=== PATIENT | male | born 1945 | race Caucasian/White ===

== ENCOUNTER → 2018-01-22 | Outpatient (CLI) | payer SELFPAY ==
[2018-01-22 21:33] LABS: Appearance, Urine Clear (Clear); Bilirubin, Urine Neg (Neg); Blood, Urine Neg (Neg); Color, Urine Yellow (P-Yellow); Glucose Qualitative, Urine Neg (Neg); Ketones, Urine Neg (Neg); Leukocyte Esterase, Urine 1+ (Neg); Nitrite, Urine Neg (Neg); Protein, Urine Neg (Neg); Urobilinogen, Urine 2+ (Normal)
[2018-01-22 21:34] LABS: Bacteria Mod /hpf; Red Blood Cells, Urine 0-2 /hpf (0-2); Squamous Epithelial Cells Few /hpf (Few)
== END | disposition home or self-care (01) ==
LOC: EDSTATUS 14:45 → LAB RH 21:19
DX: N39.0 Urinary tract infection, site not specified (principal)
CPT/HCPCS: 81001; 87086

== ENCOUNTER 2018-06-24 17:51 | Inpatient (IN) | payer OTHER, MEDICARE ==
[~2018-06-24] VITALS: Ht 195.6 cm; Wt 83.1 kg
[2018-06-24 19:04] LABS: BASOPHILS ABSOLUTE AUTO 0.07 K/mm3 (0.00-0.23); BASOPHILS PERCENT AUTO 1 % (0-2); EOSINOPHILS ABSOLUTE AUTO 0.25 K/mm3 (0.00-0.68); EOSINOPHILS PERCENT AUTO 2 % (0-6); Hematocrit 34.4 % (37.0-53.0); Hemoglobin 10.2 g/dL (13.5-17.5); IMMATURE GRAN ABSOLUTE AUTO 0.03 K/mm3 (0.00-0.10); IMMATURE GRAN PERCENT AUTO 0 % (0-1); LYMPHOCYTES ABSOLUTE AUTO 2.69 K/mm3 (0.84-5.20); LYMPHOCYTES PERCENT AUTO 26 % (21-46); MONOCYTES ABSOLUTE AUTO 0.62 K/mm3 (0.16-1.47); MONOCYTES PERCENT AUTO 6 % (4-13); Mean Corpuscular HGB 23.2 pg (26.0-34.0); Mean Corpuscular HGB Conc 29.7 g/dL (31.5-36.5); Mean Corpuscular Volume 78 fL (80-100); Mean Platelet Volume 9.6 fL (9.1-12.4); NEUTROPHILS PERCENT AUTO 65 % (41-73); Platelet Count 464 K/mm3 (150-400); RDW Coefficient Variation 18.2 % (11.7-14.2); RDW Standard Deviation 52.2 fL (35.1-46.3); White Blood Cell Count 10.36 K/mm3 (4.00-11.30)
[2018-06-24] MEDS ORDERED: ELIQUIS5 MG PO (19:22)
[2018-06-24] MEDS ORDERED: DIGOX125 MCG PO (19:22)
[2018-06-24] MEDS ORDERED: DULO30 PO (19:23)
[2018-06-24] MEDS ORDERED: Ferrous Sulfat325 M2 PO (19:23)
[2018-06-24] MEDS ORDERED: Fentanyl1 EACH TD (19:23)
[2018-06-24] MEDS ORDERED: MELATONIN 5 MG1 EACH PO (19:24)
[2018-06-24] MEDS ORDERED: Omeprazole20 M1 PO (19:25)
[2018-06-24] MEDS ORDERED: METO25 PO (19:25)
[2018-06-24 19:27] LABS: Troponin I <0.015 ng/mL (0.000-0.040)
[2018-06-24 19:30] LABS: Alanine Aminotransfer (ALT/SGP 18 U/L (12-78); Albumin, Blood 2.5 g/dL (3.4-5.0); Albumin/Globulin Ratio 0.4 (0.8-1.8); Alk Phos 135 U/L (50-136); Anion Gap 8 mmol/L (6-16); Aspartate Aminotrans (AST/SGOT 20 U/L (12-37); Bilirubin, Total 0.7 mg/dL (0.1-1.0); Blood Urea Nitrogen 10 mg/dL (8-24); Bun/Creatinine Ratio 18.4 (12.0-20.0); CO2, Blood 30 mmol/L (21-32); Chloride, Blood 95 mmol/L (98-108); Creatinine, Blood 0.54 mg/dL (0.60-1.20); Globulin, Blood 6.6 g/dL (2.2-4.0); Glomerular Filtration Rate >60 (60-); Glucose, Blood 112 mg/dL (70-99); Potassium, Blood 4.2 mmol/L (3.5-5.5); Sodium, Blood 133 mmol/L (136-145); Total Protein, Blood 9.1 g/dL (6.4-8.2)
[2018-06-24] MEDS ORDERED: TRAZ50 PO (21:54)
[2018-06-24 22:02] LABS: Digoxin (Lanoxin) 0.79 ug/mL (0.80-2.00)
[2018-06-24] MEDS ORDERED: TIZANIDINE HCL2 MG PO (22:07)
[2018-06-24] MEDS ORDERED: GAVILAX17 GM PO (22:08)
[2018-06-24] MEDS ORDERED: BISA10S PR (22:09)
[2018-06-24] MEDS ORDERED: Enema133 M1 PR (22:10)
[2018-06-24] MEDS ORDERED: HYDMOR2 PO (22:11)
[2018-06-24] MEDS ORDERED: Milk Of Ma400 MG/5 M PO (22:13)
[2018-06-24] MEDS ORDERED: OXYC5 PO (22:13)
[2018-06-24] MEDS ORDERED: PREVNAR 13 SYR0.5 ML IM (22:17)
[2018-06-24] MEDS ORDERED: LIDO700A20 TOP (22:19)
--- NOTE | 2018-06-25 05:23 | NUR ---
SHIFT SUMMARY PT ARRIVED TO FLOOR IN DISCOMFORT. PT MEDICATED PER EMAR. PT DISCOMFORT WAS MANAGED WELL. PT IS FORGETFUL AT TIMES. PT IS CURRENTLY SLEEPING AND BREATHING EASY. BED ALARM ON AND CALL LIGHT IN REACH.
[2018-06-25 05:29] LABS: International Normalized Ratio 1.11; Prothrombin Time Results 11.7 Sec (9.7-11.5)
[2018-06-25 05:32] LABS: BASOPHILS ABSOLUTE AUTO 0.06 K/mm3 (0.00-0.23); BASOPHILS PERCENT AUTO 1 % (0-2); EOSINOPHILS ABSOLUTE AUTO 0.24 K/mm3 (0.00-0.68); EOSINOPHILS PERCENT AUTO 3 % (0-6); Hematocrit 32.7 % (37.0-53.0); Hemoglobin 9.7 g/dL (13.5-17.5); IMMATURE GRAN ABSOLUTE AUTO 0.03 K/mm3 (0.00-0.10); IMMATURE GRAN PERCENT AUTO 0 % (0-1); LYMPHOCYTES ABSOLUTE AUTO 2.54 K/mm3 (0.84-5.20); LYMPHOCYTES PERCENT AUTO 28 % (21-46); MONOCYTES ABSOLUTE AUTO 0.56 K/mm3 (0.16-1.47); MONOCYTES PERCENT AUTO 6 % (4-13); Mean Corpuscular HGB 22.9 pg (26.0-34.0); Mean Corpuscular HGB Conc 29.7 g/dL (31.5-36.5); Mean Corpuscular Volume 77 fL (80-100); Mean Platelet Volume 9.7 fL (9.1-12.4); NEUTROPHILS ABSOLUTE AUTO 5.64 K/mm3 (1.96-9.15); NEUTROPHILS PERCENT AUTO 62 % (41-73); Platelet Count 407 K/mm3 (150-400); RDW Coefficient Variation 18.1 % (11.7-14.2); RDW Standard Deviation 50.2 fL (35.1-46.3); Red Blood Cell Count 4.24 M/mm3 (4.30-5.90); White Blood Cell Count 9.07 K/mm3 (4.00-11.30)
[2018-06-25 06:19] LABS: Anion Gap 7 mmol/L (6-16); Blood Urea Nitrogen 11 mg/dL (8-24); Bun/Creatinine Ratio 22.1 (12.0-20.0); CO2, Blood 29 mmol/L (21-32); Calcium, Blood 9.5 mg/dL (8.5-10.1); Chloride, Blood 95 mmol/L (98-108); Glomerular Filtration Rate >60 (60-); Glucose, Blood 102 mg/dL (70-99); Potassium, Blood 3.9 mmol/L (3.5-5.5); Sodium, Blood 131 mmol/L (136-145)
--- NOTE | 2018-06-25 18:32 | NUR ---
SHIFT SUMMARY NO ACUTE CHANGES. PATIENT COMBATIVE WHEN IN PAIN/PERSON CARE AND REPOSITIONING IS PERFORMED. ASPIRATION OF R HIP ATTEMPTED BUT WHEN PATIENT ARRIVED TO PROCEDURE ROOM HE REFUSED TO SIGN CONSENT FORM. DR. HERNANDES CONSULTED, PER DR. HERNANDES PATIENT NEEDS TO GO TO [facility] TO HAVE HIP SURGERY IT IS OUTSIDE THE SCOPE OF THIS FACILTY. PATIENT'S ISAIAH NOTIFED. ISAIAH IS PATIENT'S POA. CARE MANAGEMENT ALSO FOLLOWING CASE. PATIENT MEDICATED SEVERAL TIMES DURING SHIFT FOR PAIN. CALL LIGHT IN REACH, WILL CONTINUE TO MONITOR.
--- NOTE | 2018-06-26 03:36 | NUR ---
SHIFT SUMMARY PATIENT HAD NO ACUTE CHANGES OBSERVED THIS SHIFT. AXOX 2 W/CONFUSION. PAIN ON MOVEMENT WHEN REPOSITIONED. PIV REMAINS INTACT. NS INFUSING AT 100mL/HR. BAG TWO OF TWO. DILAUDID 1 MG GIVEN FOR RIGHT HIP PAIN PER EMAR. IV ABX INFUSED. ON 3L O2 NC. LIDO PATCHES REMOVED FROM R HIP X TWO. PATIENT COMBATIVE WITH SOME INTERVENTIONS AND QUICKLY CALMS DOWN. CALL LIGHT IN REACH. BED IN LOWEST POSITION. WILL CONTINUE TO MONITOR UNTIL DAY SHIFT NURSE ASSUMES CARE.
[2018-06-26 04:55] LABS: Hematocrit 34.2 % (37.0-53.0); Hemoglobin 9.9 g/dL (13.5-17.5); Mean Corpuscular HGB 23.1 pg (26.0-34.0); Mean Corpuscular HGB Conc 28.9 g/dL (31.5-36.5); Mean Platelet Volume 9.3 fL (9.1-12.4); Platelet Count 358 K/mm3 (150-400); RDW Coefficient Variation 18.1 % (11.7-14.2); RDW Standard Deviation 52.1 fL (35.1-46.3); Red Blood Cell Count 4.29 M/mm3 (4.30-5.90); White Blood Cell Count 7.65 K/mm3 (4.00-11.30)
[2018-06-26 04:58] LABS: Mean Corpuscular Volume 80 fL (80-100)
--- NOTE | 2018-06-26 17:01 | NUR ---
SHIFT SUMMARY PT HAS HAD NO ACUTE CHANGES THIS SHIFT, MEDICATED PER MAR FOR PAIN, NO OTHER COMPLAINTS. REPOSITIONED PT Q2, OFFERED URINAL ASSISTANCE WHEN IN ROOM-PT CONINTENT T/O MOST OF SHIFT, PT APPEARS TO BE SLEEPING AT THIS TIME, WILL CONT TO MONITOR UNTIL REPORT GIVEN TO NOC RN.
--- NOTE | 2018-06-27 04:12 | NUR ---
SHIFT SUMMARY PT MOSTLY A/O, KNEW IT WAS JUNE 2018 BUT THOUGHT IT WAS THE . WAS ABLE TO TELL ME HE WAS AT [facility]. CONFUSION AT TIMES. PAINFUL IN R HIP. PT IRRITABLE, ESPECIALLY ABOUT HAVING TO BE TURNED OR CHANGED. OFFERED URINAL FREQUENTLY, WITH THIS PT WAS MOSTLY CONTINENT THROUGHOUT THE NIGHT. PT DIFFICULT TO TURN, PT IS STIFF AND PAINFUL. REDNESS TO R HIP. MEDICATED PER EMAR. SLEEPS WELL ONCE MEDICATED AND NOT MOVING. VSS. WILL CONTINUE TO MONITOR.
[2018-06-27 05:23] LABS: BASOPHILS ABSOLUTE AUTO 0.05 K/mm3 (0.00-0.23); BASOPHILS PERCENT AUTO 1 % (0-2); EOSINOPHILS ABSOLUTE AUTO 0.31 K/mm3 (0.00-0.68); EOSINOPHILS PERCENT AUTO 4 % (0-6); Hematocrit 25.7 % (37.0-53.0); Hemoglobin 7.7 g/dL (13.5-17.5); IMMATURE GRAN ABSOLUTE AUTO 0.02 K/mm3 (0.00-0.10); IMMATURE GRAN PERCENT AUTO 0 % (0-1); LYMPHOCYTES ABSOLUTE AUTO 2.13 K/mm3 (0.84-5.20); LYMPHOCYTES PERCENT AUTO 30 % (21-46); MONOCYTES ABSOLUTE AUTO 0.41 K/mm3 (0.16-1.47); MONOCYTES PERCENT AUTO 6 % (4-13); Mean Corpuscular HGB 23.2 pg (26.0-34.0); Mean Corpuscular Volume 77 fL (80-100); Mean Platelet Volume 9.2 fL (9.1-12.4); NEUTROPHILS ABSOLUTE AUTO 4.17 K/mm3 (1.96-9.15); NEUTROPHILS PERCENT AUTO 59 % (41-73); Platelet Count 386 K/mm3 (150-400); RDW Coefficient Variation 17.8 % (11.7-14.2); RDW Standard Deviation 50.2 fL (35.1-46.3); Red Blood Cell Count 3.32 M/mm3 (4.30-5.90); White Blood Cell Count 7.09 K/mm3 (4.00-11.30)
[2018-06-27 05:54] LABS: Albumin, Blood 2.1 g/dL (3.4-5.0); Anion Gap 6 mmol/L (6-16); Blood Urea Nitrogen 19 mg/dL (8-24); Bun/Creatinine Ratio 30.9 (12.0-20.0); CO2, Blood 30 mmol/L (21-32); Calcium, Blood 9.4 mg/dL (8.5-10.1); Chloride, Blood 100 mmol/L (98-108); Creatinine, Blood 0.61 mg/dL (0.60-1.20); Glomerular Filtration Rate >60 (60-); Glucose, Blood 98 mg/dL (70-99); Phosphorus, Blood 2.1 mg/dL (2.5-4.9); Potassium, Blood 3.9 mmol/L (3.5-5.5); Sodium, Blood 136 mmol/L (136-145)
[2018-06-27 06:07] LABS: Vancomycin, Trough 20.7 ug/mL (5.0-10.0)
--- NOTE | 2018-06-27 09:47 | NUR ---
PT REFUSED TO SIT UP PT REFUSED TO SIT UP IN BED FOR BREAKFAST. PT STATED IT WAS TOO PAINFUL AND HE DEMANDED TO BE LAYED BACK DOWN IN BED. PT EDUCATED ON THE DANGERS OF EATING LYING DOWN. PT THEN ASKED RN AND PRESS TENDER SMOKE SIGNAL TO LEAVE THE ROOM AND STATED "LEAVE ME ALONE"
--- NOTE | 2018-06-27 12:22 | NUR ---
PT REFUSAL PT REFUSED REPOSITIONING. REPOSITIONING OFFERED TWICE THIS SHIFT SO FAR & PT REFUSED BOTH TIMES. WILL CONTINUE TO OFFER AND MONITOR PT
--- NOTE | 2018-06-27 14:33 | NUR ---
PT REFUSED REPOSITIONING PT REFUSED REPOSITIONING AGAIN THIS SHIFT
--- NOTE | 2018-06-27 17:38 | NUR ---
SHIFT ASSESSMENT PT R HIP RED & SWOLLEN. DR. FISHER AWARE. PT REFUSED MOST THE SHIFT FOR REPOSITIONS, BUT ALLOWED ONE BRIEF CHANGE THIS SHIFT. PT PREMEDICATED FOR CHANGE. DURING CHANGE, REDNESS WAS FOUND ON PT BOTTOM. PT EDUCATED ON THE NEED FOR REPOSITIONS TO PREVENT SKIN BREAKDOWN. PT ALLOWED FOR A PILLOW TO BE PLACED UNDER L HIP TO RELIEVE PRESSURE. NO OTHER CHANGES IN ASSESSMENT AT THIS TIME. PT HAS SLIGHT TEMP OF 99.7. ALL OTHER VITALS STABLE. WILL CONTINUE TO MONITOR UNTIL TUNROVER IS COMPLETE.
--- NOTE | 2018-06-27 19:48 | NUR ---
CT SCAN PT PREMEDICATED W/ 50 MCG FENTANYL IV. COMPLAINING OF 9/10 PAIN IN HIS R HIP. SLID OVER TO [facility] W/ 3 PEOPLE AND TAKEN DOWN TO HAVE CT OF PELVIS.
--- NOTE | 2018-06-28 03:37 | NUR ---
SHIFT SUMMARY PT IRRITABLE REGARDING ANY CARE, ESPECIALLY WHEN IT INVOLVES PT HAVING TO BE TURNED OR MOVED IN THE BED. PT PAINFUL W/ MOVEMENT. PREMEDICATING DOES NOT APPEAR TO HELP. PT APPEARS COMFORTABLE MOST OF THE TIME WHEN LYING STILL. MEDICATED WHEN PT REPORTED HE WAS PAINFUL EVEN AT REST. SPOKE W/ PT SEVERAL TIMES ABOUT SPEAKING TO STAFF RESPECTFULLY AND WITHOUT FOUL LANGUAGE. PT APOLOGETIC FOLLOWING. CONTINENT MOST OF THE TIME THIS EVENING, FREQUENT ROUNDING OFFERING URINAL EACH TIME. LOW GRADE FEVER AT START OF SHIFT. AFTER MEDICATING PT FOR PAIN W/ NORCO 2 TABS 5/325 PT'S TEMPERATURE ALSO IMPROVED TO 98.6 DEG F. PT RESTING IN BED, APPEARS COMFORTABLE. WILL CONTINUE TO MONITOR AND REPORT TO DAY RN.
[2018-06-28 05:09] LABS: BASOPHILS ABSOLUTE AUTO 0.07 K/mm3 (0.00-0.23); BASOPHILS PERCENT AUTO 1 % (0-2); EOSINOPHILS ABSOLUTE AUTO 0.22 K/mm3 (0.00-0.68); EOSINOPHILS PERCENT AUTO 3 % (0-6); Hematocrit 30.7 % (37.0-53.0); Hemoglobin 9.5 g/dL (13.5-17.5); IMMATURE GRAN ABSOLUTE AUTO 0.02 K/mm3 (0.00-0.10); IMMATURE GRAN PERCENT AUTO 0 % (0-1); LYMPHOCYTES ABSOLUTE AUTO 2.83 K/mm3 (0.84-5.20); LYMPHOCYTES PERCENT AUTO 33 % (21-46); MONOCYTES ABSOLUTE AUTO 0.51 K/mm3 (0.16-1.47); MONOCYTES PERCENT AUTO 6 % (4-13); Mean Corpuscular HGB 23.7 pg (26.0-34.0); Mean Corpuscular HGB Conc 30.9 g/dL (31.5-36.5); Mean Corpuscular Volume 77 fL (80-100); Mean Platelet Volume 9.4 fL (9.1-12.4); NEUTROPHILS ABSOLUTE AUTO 5.01 K/mm3 (1.96-9.15); NEUTROPHILS PERCENT AUTO 58 % (41-73); Platelet Count 421 K/mm3 (150-400); RDW Coefficient Variation 17.9 % (11.7-14.2); RDW Standard Deviation 49.4 fL (35.1-46.3); Red Blood Cell Count 4.01 M/mm3 (4.30-5.90); White Blood Cell Count 8.66 K/mm3 (4.00-11.30)
[2018-06-28 05:36] LABS: Percent Saturation 32.7 % (20.0-50.0)
[2018-06-28 05:37] LABS: Albumin, Blood 2.3 g/dL (3.4-5.0); Anion Gap 7 mmol/L (6-16); Blood Urea Nitrogen 19 mg/dL (8-24); Bun/Creatinine Ratio 33.4 (12.0-20.0); CO2, Blood 29 mmol/L (21-32); Calcium, Blood 9.9 mg/dL (8.5-10.1); Chloride, Blood 101 mmol/L (98-108); Creatinine, Blood 0.57 mg/dL (0.60-1.20); Glomerular Filtration Rate >60 (60-); Glucose, Blood 95 mg/dL (70-99); Phosphorus, Blood 2.2 mg/dL (2.5-4.9); Potassium, Blood 3.9 mmol/L (3.5-5.5); Sodium, Blood 137 mmol/L (136-145)
--- NOTE | 2018-06-28 17:57 | NUR ---
SHIFT SUMMARY PT HAS HAD NO ACUTE CHANGES THIS SHIFT, MEDICATED PER MAR FOR PAIN, REPOSITIONED OFTEN PT WOULD ALLOW. PT IS EATING DINNER AT THIS TIME, WILL CONT TO MONITOR UNTIL REPORT GIVEN TO DARNELL RN.
--- NOTE | 2018-06-29 04:00 | NUR ---
SHIFT SUMMARY PATIENT HAD NO ACUTE CHANGES OBSERVED THIS SHIFT. PATIENT IRRITABLE WITH MOVEMENT OF TURNS AND ATTENDS CHANGES. REPORTED R HIP PAIN X ONE AND RECEIVED NORCO X 2 TABS PER EMAR. DENIES SOB AND N/V. PIV REMAINS INTACT. LIDOCAINE PATCHES REMOVED FROM R HIP. USES URINAL AT BEDSIDE. VSS/AFEBRILE. CALL LIGHT IN REACH/ BED IN LOWEST POSITION. WILL CONTINUE TO MONITOR UNTIL DAY SHIFT NURSE ASSUMES CARE.
[2018-06-29 05:24] LABS: BASOPHILS ABSOLUTE AUTO 0.06 K/mm3 (0.00-0.23); BASOPHILS PERCENT AUTO 1 % (0-2); EOSINOPHILS ABSOLUTE AUTO 0.31 K/mm3 (0.00-0.68); EOSINOPHILS PERCENT AUTO 4 % (0-6); Hematocrit 29.7 % (37.0-53.0); IMMATURE GRAN ABSOLUTE AUTO 0.03 K/mm3 (0.00-0.10); IMMATURE GRAN PERCENT AUTO 0 % (0-1); LYMPHOCYTES ABSOLUTE AUTO 2.75 K/mm3 (0.84-5.20); LYMPHOCYTES PERCENT AUTO 38 % (21-46); MONOCYTES ABSOLUTE AUTO 0.48 K/mm3 (0.16-1.47); MONOCYTES PERCENT AUTO 7 % (4-13); Mean Corpuscular HGB 23.4 pg (26.0-34.0); Mean Corpuscular HGB Conc 30.3 g/dL (31.5-36.5); Mean Corpuscular Volume 77 fL (80-100); Mean Platelet Volume 9.5 fL (9.1-12.4); NEUTROPHILS ABSOLUTE AUTO 3.68 K/mm3 (1.96-9.15); NEUTROPHILS PERCENT AUTO 50 % (41-73); Platelet Count 403 K/mm3 (150-400); RDW Coefficient Variation 18.2 % (11.7-14.2); RDW Standard Deviation 50.4 fL (35.1-46.3); Red Blood Cell Count 3.85 M/mm3 (4.30-5.90); White Blood Cell Count 7.31 K/mm3 (4.00-11.30)
[2018-06-29 05:58] LABS: Albumin, Blood 2.4 g/dL (3.4-5.0); Anion Gap 8 mmol/L (6-16); Blood Urea Nitrogen 20 mg/dL (8-24); Bun/Creatinine Ratio 38.6 (12.0-20.0); CO2, Blood 28 mmol/L (21-32); Calcium, Blood 9.7 mg/dL (8.5-10.1); Chloride, Blood 101 mmol/L (98-108); Creatinine, Blood 0.52 mg/dL (0.60-1.20); Glomerular Filtration Rate >60 (60-); Glucose, Blood 87 mg/dL (70-99); Phosphorus, Blood 1.9 mg/dL (2.5-4.9); Potassium, Blood 3.6 mmol/L (3.5-5.5); Sodium, Blood 137 mmol/L (136-145)
--- NOTE | 2018-06-29 18:10 | NUR ---
SHIFT SUMMARY. A&OX3, INTERMITTENT CONFUSION. CONTINUES WITH CHRONIC L SIDED WEAKNESS, L ARM IS NEAR FLACCID WITH HAND COTNRACTURE. PT WAS PLEASANT MOST OF THE SHIFT ALTHOUGH BECOMES SOMEWHAT DISGRUNTLED WITH CARE SECONDARY TO PAIN. ATTEMPTED TO PREMEDICATE FOR PAIN PRIOR TO CARE. PT HAD ONE EPISODE OF INCONTINENT STOOL AND URINE. TURN SHEDULED IMPLEMENTED. R HIP/UPPER LEG CONTINUES TO BE PAINFUL, WITH TOUCH AND MOVEMENT. PAIN MANAGED WELL WITH CURRENT ORDERS AND NO ADVERSE EFFECTS. NO N/V, SOB. GOOD MEAL AND FLUID INTAKE. NO NEW CHANGES.
--- NOTE | 2018-06-30 05:09 | NUR ---
SHIFT SUMMARY PATIENT HAD NO ACUTE CHANGES OBSERVED DURING THE SHIFT. COOPERATIVE WITH BASIC CARE. PATIENT IRRITABLE WITH PAIN ON MOVEMENT TO RIGHT LEG/HIP. RESOLVES QUICKLY. TORADOL GIVEN FOR R HIP PAIN X ONE PER EMAR. VSS/AFEBRILE. DENIES SOB AND N/V. USES CALL LIGHT APPROPRIATELY. BED IN LOWEST POSITION. WILL CONTINUE TO MONITOR UNTIL DAY SHIFT NURSE ASSUMES CARE.
--- NOTE | 2018-06-30 17:01 | NUR ---
SHIFT SUMMARY. ALERT, ORIENTATED X3, MOSTLY PLEASANT, ALTHOUGH HAS ANGRY BEHAVIOR WITH CARE SECONDARY TO PAIN. PT REFUSED PHYSICAL THERAPY. CHANGES MADE TO PAIN MEDICATION REGIMEN TO MORE CLOSELY RESEMBLE HOME MED REGIMEN AT [facility], MED RX VARIFIED WITH [facility] NURSE AND [facility] LAURA THAT WAS FAXED TO US TODAY. NO SOB, N/V. GOOD APPETITE AND INTAKE. POTENTIAL D/C BACK TO [facility] TOMORROW PER DR. FISHER.
--- NOTE | 2018-06-30 18:38 | NUR ---
Attempted visit with patient. Offered non-pharmacological therapeutic massage to promote well being and attempt to reduce pain. This was refused by the patient who states that his pain is 10/10. He asked me to leave the room. Spoke with GRAZYNA Valente. Reviewed plan of care.
--- NOTE | 2018-07-01 03:35 | NUR ---
SHIFT SUMMARY PATIENT HAD NO ACUTE CHANGES OBSERVED. AXOX 3 W/CONFUSION AT TIMES. PATIENT LESS IRRITABLE THIS SHIFT WITH CARE. PAIN W/MOVEMENT OF RIGHT LEG/HIP. VSS/AFEBRILE. DENIES SOB AND N/V. USES CALL LIGHT APPROPRIATELY. LIDODERM PATCHES REMOVED. CALL LIGHT IN REACH. BED IN LOWEST POSITION. WILL CONTINUE TO MONITOR UNTIL DAY SHIFT NURSE ASSUMES CARE.
[2018-07-01] MEDS ORDERED: Docusate Sodiu1 EACH PO (13:52)
[2018-07-01] MEDS ORDERED: SACC250C PO (13:53)
--- NOTE | 2018-07-01 17:44 | NUR ---
SHIFT SUMMARY. 1730 PT DISCHARGED TO [facility] VIA [facility]. PT PREMEDICATED FOR PAIN PRIOR TO TRANSFER. PT ATE DINNER PRIOR TO D/C. IV REMOVED. 173 REPORT CALLED TO EVIE AT [facility] AND NOTIFIED OF ORTHO APPOINTMENT AT [facility] ON 07/18/18. NO NEW CHANGES.
== END 2018-07-01 17:26 | DRG 560 ==
LOC: ER 17:51 → MEDS 22:04 → ENPENDDIS 07-01 16:44 → MEDS 07-01 17:26
PROVIDERS: Emergency Medicine; Family Medicine; Internal Medicine; Nurse Practitioner Acute Care; ADMIT Internal Medicine
DX: T84.51XA Infection and inflammatory reaction due to internal right hip prosthesis, initial encounter (principal); M86.60 Other chronic osteomyelitis, unspecified site; I69.954 Hemiplegia and hemiparesis following unspecified cerebrovascular disease affecting left non-dominant side; E87.1 Hypo-osmolality and hyponatremia; D64.9 Anemia, unspecified; Z96.641 Presence of right artificial hip joint; K21.9 Gastro-esophageal reflux disease without esophagitis; I48.2 Chronic atrial fibrillation; F32.9 Major depressive disorder, single episode, unspecified; F41.9 Anxiety disorder, unspecified; F43.10 Post-traumatic stress disorder, unspecified
CPT/HCPCS: 36415; 72193; 73502; 80048; 80053; 80069; 80162; 80202; 82607; 82728; 82746; 83540; 83550; 83605; 84484; 85025; 85027; 85610; 85651; 86140; 87040; 93005; 93010; 94760; 96374; 97162; 97530; 99285-25; J0692; J1170; J1885; J3010; J3370; J7030; J7050; Q9967

== ENCOUNTER 2018-07-07 19:57 | Inpatient (IN) | payer OTHER, MEDICARE ==
[~2018-07-07] VITALS: Ht 185.4 cm; Wt 79.4 kg
[~2018-07-07 19:57] MED LIST: BISA10S PR; DIGOX125 MCG PO; DULO30 PO; Docusate Sodiu1 EACH PO; ELIQUIS5 MG PO; Enema133 M1 PR; Fentanyl1 EACH TD; Ferrous Sulfat325 M2 PO; GAVILAX17 GM PO; HYDMOR2 PO; LIDO700A20 TOP; MELATONIN 5 MG1 EACH PO; METO25 PO; Milk Of Ma400 MG/5 M PO; OXYC5 PO; Omeprazole20 M1 PO; PREVNAR 13 SYR0.5 ML IM; SACC250C PO; TIZANIDINE HCL2 MG PO; TRAZ50 PO
[2018-07-07 20:45] LABS: BASOPHILS ABSOLUTE AUTO 0.05 K/mm3 (0.00-0.23); BASOPHILS PERCENT AUTO 1 % (0-2); EOSINOPHILS ABSOLUTE AUTO 0.23 K/mm3 (0.00-0.68); EOSINOPHILS PERCENT AUTO 3 % (0-6); Hemoglobin 10.4 g/dL (13.5-17.5); IMMATURE GRAN ABSOLUTE AUTO 0.01 K/mm3 (0.00-0.10); IMMATURE GRAN PERCENT AUTO 0 % (0-1); LYMPHOCYTES PERCENT AUTO 30 % (21-46); MONOCYTES ABSOLUTE AUTO 0.55 K/mm3 (0.16-1.47); MONOCYTES PERCENT AUTO 7 % (4-13); Mean Corpuscular HGB Conc 29.7 g/dL (31.5-36.5); Mean Platelet Volume 9.4 fL (9.1-12.4); NEUTROPHILS ABSOLUTE AUTO 4.37 K/mm3 (1.96-9.15); NEUTROPHILS PERCENT AUTO 59 % (41-73); Platelet Count 358 K/mm3 (150-400); RDW Coefficient Variation 18.6 % (11.7-14.2); Red Blood Cell Count 4.33 M/mm3 (4.30-5.90); White Blood Cell Count 7.41 K/mm3 (4.00-11.30)
[2018-07-07 20:46] LABS: Mean Corpuscular Volume 81 fL (80-100)
[2018-07-07 21:03] LABS: Alanine Aminotransfer (ALT/SGP 67 U/L (12-78); Albumin, Blood 2.8 g/dL (3.4-5.0); Albumin/Globulin Ratio 0.4 (0.8-1.8); Alk Phos 169 U/L (50-136); Anion Gap 7 mmol/L (6-16); Aspartate Aminotrans (AST/SGOT 33 U/L (12-37); Bilirubin, Total 0.4 mg/dL (0.1-1.0); Blood Urea Nitrogen 13 mg/dL (8-24); Bun/Creatinine Ratio 28.3 (12.0-20.0); CO2, Blood 32 mmol/L (21-32); Chloride, Blood 97 mmol/L (98-108); Creatinine, Blood 0.46 mg/dL (0.60-1.20); Globulin, Blood 6.5 g/dL (2.2-4.0); Glomerular Filtration Rate >60 (60-); Glucose, Blood 113 mg/dL (70-99); Potassium, Blood 3.9 mmol/L (3.5-5.5); Sodium, Blood 136 mmol/L (136-145); Total Protein, Blood 9.3 g/dL (6.4-8.2)
--- NOTE | 2018-07-08 00:15 | NUR ---
PT TRANSFERED TO UNIT FROM ED FOR R HIP INFECTION. A&0 X4. VS WNL. NPO AT THIS TIME. FLUIDS INFUSING. WILL MEDICATE WITH 2MG PO DILAUDID. R HIP RED, SWOLLEN AND WARM TO TOUCH. PT AFEBRILE. WILL GIVE SCHED ABX THIS AM PER EMAR.
[2018-07-08 04:40] LABS: BASOPHILS ABSOLUTE AUTO 0.04 K/mm3 (0.00-0.23); BASOPHILS PERCENT AUTO 1 % (0-2); EOSINOPHILS ABSOLUTE AUTO 0.25 K/mm3 (0.00-0.68); EOSINOPHILS PERCENT AUTO 3 % (0-6); Hematocrit 31.4 % (37.0-53.0); Hemoglobin 9.5 g/dL (13.5-17.5); IMMATURE GRAN ABSOLUTE AUTO 0.02 K/mm3 (0.00-0.10); IMMATURE GRAN PERCENT AUTO 0 % (0-1); LYMPHOCYTES ABSOLUTE AUTO 2.33 K/mm3 (0.84-5.20); LYMPHOCYTES PERCENT AUTO 32 % (21-46); MONOCYTES ABSOLUTE AUTO 0.53 K/mm3 (0.16-1.47); MONOCYTES PERCENT AUTO 7 % (4-13); Mean Corpuscular HGB 24.1 pg (26.0-34.0); Mean Corpuscular HGB Conc 30.3 g/dL (31.5-36.5); Mean Corpuscular Volume 80 fL (80-100); Mean Platelet Volume 10.1 fL (9.1-12.4); NEUTROPHILS ABSOLUTE AUTO 4.12 K/mm3 (1.96-9.15); NEUTROPHILS PERCENT AUTO 57 % (41-73); Platelet Count 341 K/mm3 (150-400); RDW Coefficient Variation 18.5 % (11.7-14.2); RDW Standard Deviation 53.7 fL (35.1-46.3); Red Blood Cell Count 3.94 M/mm3 (4.30-5.90); White Blood Cell Count 7.29 K/mm3 (4.00-11.30)
[2018-07-08 04:59] LABS: Anion Gap 6 mmol/L (6-16); Blood Urea Nitrogen 12 mg/dL (8-24); Bun/Creatinine Ratio 27.7 (12.0-20.0); CO2, Blood 31 mmol/L (21-32); Calcium, Blood 9.9 mg/dL (8.5-10.1); Chloride, Blood 99 mmol/L (98-108); Creatinine, Blood 0.43 mg/dL (0.60-1.20); Glomerular Filtration Rate >60 (60-); Glucose, Blood 98 mg/dL (70-99); Potassium, Blood 3.9 mmol/L (3.5-5.5); Sodium, Blood 136 mmol/L (136-145)
--- NOTE | 2018-07-09 06:39 | NUR ---
SHIFT SUMMARY PT ADMITTED WITH RIGHT HIP CELLULITIS AND OSTEOMYELITIS, POSITIVE BLOOD CULTURES. PT IS ALERT, SOME ING PRESENT. HE IS RECEIVING IV ABX FOR HIS INFECTION. RIGHT HIP IS RED, SWOLLEN, PAINFUL. HE ALLOWS SOME REPOSITIONING. DR. TOMPKINS SAW HIM YESTERDAY, SEE CONSULT NOTE. MEDICATED FOR PAIN PER EMAR. HR IRREGULAR, HX A-FIB. PT'S CAME IN TO SEE HIM LAST NIGHT, WOULD LIKE AN UPDATE ON THE PLAN THIS MORNING. WILL CTM UNTIL PASS TO NEXT SHIFT.
--- NOTE | 2018-07-09 15:51 | NUR ---
TRANSFER TO [facility] VIA [facility]. UPDATED. PATIENT AGREEABLE.
== END 2018-07-09 15:45 | disposition short-term general hospital (02) | DRG 920 ==
LOC: ER 19:57 → SURS 21:27 → ERHOLD 21:27 → SURS 23:36
PROVIDERS: Emergency Medicine; Nurse Practitioner Acute Care; ADMIT Internal Medicine
DX: T85.79XA Infection and inflammatory reaction due to other internal prosthetic devices, implants and grafts, initial encounter (principal); M86.051 Acute hematogenous osteomyelitis, right femur; F11.20 Opioid dependence, uncomplicated; T84.030A Mechanical loosening of internal right hip prosthetic joint, initial encounter; I69.354 Hemiplegia and hemiparesis following cerebral infarction affecting left non-dominant side; B95.61 Methicillin susceptible Staphylococcus aureus infection as the cause of diseases classified elsewhere; I48.2 Chronic atrial fibrillation; F03.90 Unspecified dementia, unspecified severity, without behavioral disturbance, psychotic disturbance, mood disturbance, and anxiety; J45.20 Mild intermittent asthma, uncomplicated; D64.9 Anemia, unspecified; Z79.01 Long term (current) use of anticoagulants; G89.29 Other chronic pain; F32.9 Major depressive disorder, single episode, unspecified; F41.9 Anxiety disorder, unspecified; B19.20 Unspecified viral hepatitis C without hepatic coma
CPT/HCPCS: 36415; 73701; 80048; 80053; 83605; 85025; 85651; 86140; 87040; 87077; 87147; 87186; 96374-59; 99285-25; J0690; J3370; J7030; Q9967

== ENCOUNTER 2018-10-09 17:06 | Emergency (ER) | payer MEDICARE ==
[~2018-10-09] VITALS: Ht 193 cm; Wt 88.0 kg
[2018-10-09 18:37] LABS: BASOPHILS ABSOLUTE AUTO 0.07 K/mm3 (0.00-0.23); BASOPHILS PERCENT AUTO 1 % (0-2); EOSINOPHILS ABSOLUTE AUTO 0.44 K/mm3 (0.00-0.68); EOSINOPHILS PERCENT AUTO 4 % (0-6); Hematocrit 34.4 % (37.0-53.0); Hemoglobin 10.8 g/dL (13.5-17.5); IMMATURE GRAN ABSOLUTE AUTO 0.06 K/mm3 (0.00-0.10); IMMATURE GRAN PERCENT AUTO 1 % (0-1); LYMPHOCYTES ABSOLUTE AUTO 2.43 K/mm3 (0.84-5.20); LYMPHOCYTES PERCENT AUTO 24 % (21-46); MONOCYTES ABSOLUTE AUTO 0.63 K/mm3 (0.16-1.47); MONOCYTES PERCENT AUTO 6 % (4-13); Mean Corpuscular HGB 24.9 pg (26.0-34.0); Mean Corpuscular HGB Conc 31.4 g/dL (31.5-36.5); Mean Corpuscular Volume 79 fL (80-100); Mean Platelet Volume 9.4 fL (9.1-12.4); NEUTROPHILS ABSOLUTE AUTO 6.42 K/mm3 (1.96-9.15); NEUTROPHILS PERCENT AUTO 64 % (41-73); Platelet Count 428 K/mm3 (150-400); RDW Coefficient Variation 15.5 % (11.7-14.2); RDW Standard Deviation 44.6 fL (35.1-46.3); Red Blood Cell Count 4.34 M/mm3 (4.30-5.90); White Blood Cell Count 10.05 K/mm3 (4.00-11.30)
[2018-10-09 18:58] LABS: Alanine Aminotransfer (ALT/SGP 28 U/L (12-78); Albumin, Blood 2.8 g/dL (3.4-5.0); Albumin/Globulin Ratio 0.5 (0.8-1.8); Alk Phos 109 U/L (50-136); Anion Gap 3 mmol/L (6-16); Aspartate Aminotrans (AST/SGOT 19 U/L (12-37); Bilirubin, Total 0.3 mg/dL (0.1-1.0); Blood Urea Nitrogen 20 mg/dL (8-24); Bun/Creatinine Ratio 45.2 (12.0-20.0); CO2, Blood 33 mmol/L (21-32); Chloride, Blood 98 mmol/L (98-108); Creatinine, Blood 0.44 mg/dL (0.60-1.20); Globulin, Blood 5.5 g/dL (2.2-4.0); Glomerular Filtration Rate >60 (60-); Glucose, Blood 107 mg/dL (70-99); Potassium, Blood 4.2 mmol/L (3.5-5.5); Sodium, Blood 134 mmol/L (136-145); Total Protein, Blood 8.3 g/dL (6.4-8.2)
== END 2018-10-09 21:45 | disposition home or self-care (01) ==
LOC: ER 17:06
PROVIDERS: Emergency Medicine
DX: M25.551 Pain in right hip (principal); G89.29 Other chronic pain; F41.9 Anxiety disorder, unspecified; I48.2 Chronic atrial fibrillation; F43.10 Post-traumatic stress disorder, unspecified; J45.20 Mild intermittent asthma, uncomplicated; Z88.5 Allergy status to narcotic agent; Z79.899 Other long term (current) drug therapy; Z79.01 Long term (current) use of anticoagulants; Z86.73 Personal history of transient ischemic attack (TIA), and cerebral infarction without residual deficits; Z86.19 Personal history of other infectious and parasitic diseases; Z87.891 Personal history of nicotine dependence
CPT/HCPCS: 36415; 73701; 80053; 83605; 84145; 85025; 96374-59; 99284-25; J1170; Q9967

== ENCOUNTER 2019-08-24 13:46 | Inpatient (IN) | payer OTHER, MEDICARE ==
[~2019-08-24] VITALS: Ht 193 cm; Wt 113.3 kg
[2019-08-24] MEDS ORDERED: DULO30 PO (14:17)
[2019-08-24] MEDS ORDERED: OMEP20ER PO (14:17)
[2019-08-24] MEDS ORDERED: ALLERCLEAR10 MG PO (14:17)
[2019-08-24] MEDS ORDERED: LANOXIN125 MCG PO (14:17)
[2019-08-24] MEDS ORDERED: MIRALAX17 GM PO (14:17)
[2019-08-24] MEDS ORDERED: ELIQUIS5 MG PO (14:18)
[2019-08-24] MEDS ORDERED: DOCU100 PO (14:18)
[2019-08-24] MEDS ORDERED: SENN187 PO (14:18)
[2019-08-24] MEDS ORDERED: METO25 PO (14:19)
[2019-08-24] MEDS ORDERED: HYDMOR2 PO (14:19)
[2019-08-24 14:34] LABS: BASOPHILS ABSOLUTE AUTO 0.04 K/mm3 (0.00-0.23); BASOPHILS PERCENT AUTO 0 % (0-2); EOSINOPHILS PERCENT AUTO 0 % (0-6); Hematocrit 41.7 % (37.0-53.0); Hemoglobin 12.7 g/dL (13.5-17.5); IMMATURE GRAN ABSOLUTE AUTO 0.21 K/mm3 (0.00-0.10); IMMATURE GRAN PERCENT AUTO 1 % (0-1); LYMPHOCYTES ABSOLUTE AUTO 1.58 K/mm3 (0.84-5.20); LYMPHOCYTES PERCENT AUTO 6 % (21-46); MONOCYTES ABSOLUTE AUTO 1.21 K/mm3 (0.16-1.47); MONOCYTES PERCENT AUTO 5 % (4-13); Mean Corpuscular HGB 24.1 pg (26.0-34.0); Mean Corpuscular HGB Conc 30.5 g/dL (31.5-36.5); Mean Corpuscular Volume 79 fL (80-100); Mean Platelet Volume 10.8 fL (9.1-12.4); NEUTROPHILS ABSOLUTE AUTO 23.13 K/mm3 (1.96-9.15); NEUTROPHILS PERCENT AUTO 88 % (41-73); Platelet Count 276 K/mm3 (150-400); RDW Coefficient Variation 18.5 % (11.7-14.2); RDW Standard Deviation 51.4 fL (35.1-46.3); Red Blood Cell Count 5.26 M/mm3 (4.30-5.90); White Blood Cell Count 26.17 K/mm3 (4.00-11.30)
[2019-08-24 14:44] LABS: Alanine Aminotransfer (ALT/SGP 179 U/L (12-78); Albumin, Blood 2.7 g/dL (3.4-5.0); Albumin/Globulin Ratio 0.4 (0.8-1.8); Alk Phos 213 U/L (50-136); Anion Gap 8 mmol/L (6-16); Aspartate Aminotrans (AST/SGOT 299 U/L (12-37); Bilirubin, Total 5.9 mg/dL (0.1-1.0); Blood Urea Nitrogen 30 mg/dL (8-24); Bun/Creatinine Ratio 34.2 (12.0-20.0); CO2, Blood 27 mmol/L (21-32); Chloride, Blood 95 mmol/L (98-108); Creatinine, Blood 0.88 mg/dL (0.60-1.20); Globulin, Blood 6.8 g/dL (2.2-4.0); Glomerular Filtration Rate >60 (60-); Glucose, Blood 123 mg/dL (70-99); Potassium, Blood 5.5 mmol/L (3.5-5.5); Sodium, Blood 130 mmol/L (136-145); Total Protein, Blood 9.5 g/dL (6.4-8.2); Troponin I <0.015 ng/mL (0.000-0.040)
[2019-08-24 14:51] LABS: International Normalized Ratio 1.33
[2019-08-24 15:00] LABS: Digoxin (Lanoxin) 1.97 ug/mL (0.80-2.00)
[2019-08-24 15:07] LABS: Magnesium, Blood 1.9 mg/dL (1.6-2.4)
[2019-08-24 15:13] LABS: Source, Urine Catheter
[2019-08-24 15:16] LABS: Bilirubin, Urine Neg (Neg); Blood, Urine 2+ (Neg); Glucose Qualitative, Urine Neg (Neg); Ketones, Urine Neg (Neg); Leukocyte Esterase, Urine 3+ (Neg); Nitrite, Urine Neg (Neg); Protein, Urine Neg (Neg); Specific Gravity, Urine 1.015 (1.003-1.022); Urobilinogen, Urine 1+ (Normal)
[2019-08-24 15:27] LABS: Color, Urine Amber (P-Yellow)
[2019-08-24 15:28] LABS: Appearance, Urine Cloudy (Clear)
[2019-08-24 15:29] LABS: Red Blood Cells, Urine 0-2 /hpf (0-2); White Blood Cells, Urine 50-100 /hpf (0-5)
[2019-08-24 15:30] LABS: Bacteria Many /hpf; Squamous Epithelial Cells Not Seen /hpf (Few)
[2019-08-24 15:31] LABS: Yeast/Fungi Urine Mod /hpf
[2019-08-24 16:35] LABS: Adenovirus Not Detected (NOT DETECT); Bordetella pertussis Not Detected (NOT DETECT); Chlamydophila pneumoniae Not Detected (NOT DETECT); Coronavirus 229E Not Detected (NOT DETECT); Coronavirus HKU1 Not Detected (NOT DETECT); Coronavirus NL63 Not Detected (NOT DETECT); Coronavirus OC43 Not Detected (NOT DETECT); Human Metapneumovirus Not Detected (NOT DETECT); Human Rhinovirus/Enterovirus Not Detected (NOT DETECT); Influenza A/2009-H1 Not Detected (NOT DETECT); Influenza A/H1 Not Detected (NOT DETECT); Influenza A/H3 Not Detected (NOT DETECT); Influenza B Not Detected (NOT DETECT); Mycoplasma pneumoniae Not Detected (NOT DETECT); Parainfluenza Virus 1 Not Detected (NOT DETECT); Parainfluenza Virus 2 Not Detected (NOT DETECT); Parainfluenza Virus 3 Not Detected (NOT DETECT); Parainfluenza Virus 4 Not Detected (NOT DETECT); Respiratory Syncytial Virus Not Detected (NOT DETECT)
[2019-08-24 17:29] LABS: PCO2 Arterial 53.1 mmHg (35-45); PO2 Arterial 74.1 mmHg (80-100); pH Blood Arterial 7.33 (7.35-7.45)
[2019-08-24] MEDS ORDERED: MILK OF MA400 MG/5 M PO (18:20)
[2019-08-24] MEDS ORDERED: PROAIR DIGIHAL90 MCG INH (18:25)
[2019-08-24] MEDS ORDERED: ACET325 PO (18:26)
[2019-08-24] MEDS ORDERED: BISA10S PR (18:42)
[2019-08-24] MEDS ORDERED: BENADRYL25 MG PO (18:43)
--- NOTE | 2019-08-24 19:00 | NUR ---
ASSUMED CARE NOTE: ASSUMED CARE OF PT AT 1900, RECEVIED REPORT FROM GRAZYNA PENNINGTON. PT IS ALERT AND ORIENTED TO SELF. PT IS ANXIOUS AT THE MOMENT. PT IS ON BIPAP WITH SETTINGS @ 14/10, WITH FiO2 AT 70%, SPO2 ABOVE 90%, PT HAS NON-PRODUCTIVE COUGH. PT IN AFIB-WITH HR @ IN THE 80'S. PT DENIES PAIN AT THIS TIME. ACTIVE BOWEL TONES HEARD IN ALL FOUR QUADRANTS. MATHIS PATNET AND DRAINING YASMIN YELLOW URINE. DR. MUNSON AT BEDSIDE.
--- NOTE | 2019-08-24 19:21 | NUR ---
PT ADMITTED AT 1800 ON NRB AND THEN CHANGED TO BIPAP AT 16/10 AT 100%. PT RR 18-GODFREY W/O INITIAL C/O SOB BUT IT WAS NOTED TO BE C/O WIND OF THE MASK THAT HE DOES NOT LIKE. PT LUNG WITH AIR MOVEMNT ONLY IN UPPER APEX BILAT PER ASCULTATION. NO VISIBLE SKIN WOUNDS NOTED. PT HAS MATHIS CATH OF YASMIN URINE. BLLE EDEMA OF 3+. R SIDE IS FLACCID. VERY MINIMAL MOVEMT OF L SIDE. PT IS A/O AND IS ABLE TO ANSWER QUESTIONS OF PERSONAL HX. IV SITES FRAGLE AND L AC INFILTRATED STARTED ADDITIONAL IVF FOR SEPSIS RESUSSITATION. REPORT GIVEN TO NOC JOHNATHAN.
[2019-08-24 21:22] LABS: Base Excess Venous 2.8 mmol/L; Bicarbonate Venous 25.7 mmol/L (24.0-30.0); PCO2 Venous 51.3 mmHg (38-42); PO2 Venous 38.4 mmHg (38-42); pH Blood Venous 7.35 (7.34-7.37)
--- NOTE | 2019-08-24 21:46 | NUR ---
UPDATE: 1939: PT RECEVIED A RIGHT GRION CENTRAL LINE, BY DR. MUNSON. PT TOLERATED PROCEDURE WELL. 2129: PT BEGAN TO BECOME ANXIOUS AND YELLING " PLEASE HELP ME, I CANNOT BREATH" SPO2 ABOVE 90% AT THIS TIME. 2132: PT TOOK OFF BIPAP MASK, PT REFUSED TO PUT MASK BACK ON. PT WAS THEN PLACED ON 15L OF O2 VIA HIGH-FLOW NC, SPO2 BEGAN TO DECLINE. SPO2 DOWN INTO THE 80'S. RT AT BEDSIDE. BIPAP SETTINGS: 03/03, FiO2 OF 100% 2139: BREATHING TREATMENT BEING DELIVERED. SPO2 SLOWLY COMING BACK UP. 2143: DR. MUNSON CALLED, NEW ORDERS GIVEN TO START PRECEDEX DRIP
[2019-08-25 03:29] LABS: Base Excess Venous 0.8 mmol/L; Bicarbonate Venous 24.1 mmol/L (24.0-30.0); PCO2 Venous 53.2 mmHg (38-42); PO2 Venous 46.8 mmHg (38-42); pH Blood Venous 7.31 (7.34-7.37)
[2019-08-25 03:32] LABS: BASOPHILS ABSOLUTE AUTO 0.02 K/mm3 (0.00-0.23); BASOPHILS PERCENT AUTO 0 % (0-2); EOSINOPHILS ABSOLUTE AUTO 0.01 K/mm3 (0.00-0.68); EOSINOPHILS PERCENT AUTO 0 % (0-6); Hemoglobin 11.1 g/dL (13.5-17.5); IMMATURE GRAN ABSOLUTE AUTO 0.07 K/mm3 (0.00-0.10); IMMATURE GRAN PERCENT AUTO 1 % (0-1); LYMPHOCYTES ABSOLUTE AUTO 0.92 K/mm3 (0.84-5.20); LYMPHOCYTES PERCENT AUTO 6 % (21-46); MONOCYTES ABSOLUTE AUTO 0.59 K/mm3 (0.16-1.47); MONOCYTES PERCENT AUTO 4 % (4-13); Mean Corpuscular HGB 24.3 pg (26.0-34.0); Mean Corpuscular HGB Conc 30.8 g/dL (31.5-36.5); Mean Corpuscular Volume 79 fL (80-100); Mean Platelet Volume 10.3 fL (9.1-12.4); NEUTROPHILS ABSOLUTE AUTO 12.71 K/mm3 (1.96-9.15); NEUTROPHILS PERCENT AUTO 89 % (41-73); Platelet Count 201 K/mm3 (150-400); RDW Coefficient Variation 17.9 % (11.7-14.2); RDW Standard Deviation 51.5 fL (35.1-46.3); Red Blood Cell Count 4.56 M/mm3 (4.30-5.90); White Blood Cell Count 14.32 K/mm3 (4.00-11.30)
[2019-08-25 03:52] LABS: Magnesium, Blood 1.7 mg/dL (1.6-2.4)
--- NOTE | 2019-08-25 03:53 | NUR ---
UPDATE: PT PLACED ON FULL-FACE MASK FOR BIPAP. BIPAP SETTINGS 12/8, FiO2 OF 60%, SPO2 OF 96% PRECEDEX TITRATED DOWN TO 0.4MCG/KG/HR, DUE TO SOFT BP'S
[2019-08-25 04:00] LABS: Alanine Aminotransfer (ALT/SGP 100 U/L (12-78); Albumin, Blood 2.1 g/dL (3.4-5.0); Albumin/Globulin Ratio 0.4 (0.8-1.8); Alk Phos 140 U/L (50-136); Anion Gap 6 mmol/L (6-16); Aspartate Aminotrans (AST/SGOT 113 U/L (12-37); Bilirubin, Total 2.7 mg/dL (0.1-1.0); Blood Urea Nitrogen 29 mg/dL (8-24); Bun/Creatinine Ratio 42.2 (12.0-20.0); CO2, Blood 25 mmol/L (21-32); Chloride, Blood 105 mmol/L (98-108); Creatinine, Blood 0.69 mg/dL (0.60-1.20); Globulin, Blood 5.1 g/dL (2.2-4.0); Glomerular Filtration Rate >60 (60-); Glucose, Blood 98 mg/dL (70-99); Sodium, Blood 136 mmol/L (136-145)
[2019-08-25 04:01] LABS: Potassium, Blood 3.3 mmol/L (3.5-5.5); Total Protein, Blood 7.2 g/dL (6.4-8.2)
--- NOTE | 2019-08-25 05:43 | NUR ---
SHIFT SUMMARY: SEE PREVIOUS NOTES. PT REMAINS ON BIPAP WITH SETTINGS @ 12/8, FiO2 ABOVE 90%, SPO2 ABOVE 90% AT THE START OF SHIFT PT WAS C/O NOT BEING ABLE TO BREATH WITH THE MASK. PT WAS ANXIOUS AND NOT ABLE TO TOLERATE BIPAP. PRECEDEX WAS THEN ORDERED, WHICH HAS IMPROVED BIPAP COMPLIANCE. PRECEDEX CURRENTLY RUNNING @ 0.4MCG/KG/HR. PT ALSO RECEVIED A CENTRAL LINE, LOCATED IN THE RIGHT GRION. PT HAS BEEN IN AFIB WITH HR BETWEEN 90-110. PT HAD AN EXTRA LARGE SOFT BM THIS THIS, ATTENDS IN PLACE. PT MATHIS IS PATENT AND DRAINING YASMIN CLOUDY URINE, DISCHARGE NOTED AT U[place]THRA OPENING , YELLOW/GREEN. BLOOD PRESSURES HAVE BEEN SOFT, LAST NS 75ML/HR OF 1000ML FLUID BAG RUNNING. WILL CONTINUE TO MONITOR PT UNTIL REPORT IS GIVEN TO ONCOMING SHIFT.
--- NOTE | 2019-08-25 18:31 | NUR ---
SHIFT SUMMARY PT IS ALERT AND ORIENTED TO PERSON AND PLACE. PT HAS BEEN ON BIPAP MOST OF THE DAY WITH A SHORT REST ON NC THIS MORNING. PT HAD A COUPLE OF EPISODES WHERE HIS SPO2 WOULD DROP TO MID 80'S AND WOULD REQUIRE HIGH FIO2 TO RECOVER. PT HAS A LEAK AROUND THE MASK. RT AND DR RIVERA WERE UPDATED MULTIPLE TIMES THROUGH OUT THE DAY AND ATTEMPTED TO FIX AIR LEAK. INCREASED PRECEDEX GTT THROUGHOUT THE DAY TO HELP PT TOLERATE BIPAP. SEE EMAR FOR DOSAGES. MOST RECENT SPO2 DROP CAME APPROX 30 MIN AFTER PO MEDS AND SIP OF WATER. ORDERS RECEIVED TO MAKE PT STRICT NPO. PT CONTINUES TO BE IN A-FIB RATES 90'S-100'S. MATHIS REMAINS IN PLACE DRAINING YASMIN QUANITY SUFFICIANT URINE.
--- NOTE | 2019-08-25 20:58 | NUR ---
ASSUMPTION OF CARE ASSUMED CARE OF PT @ 1900, PT ALERT AND ORIENTED TO SELF, LOCATION, EVENT AND FOLLOWING DIRECTIONS. PT ON BIPAP /8 FIO2 90%, TITRATED DOWN TO 75% (SEE FLOWSHEET), RR 30'S. MONITOR SHOWS AFIB HR 100-120'S, PT HYPERTENSIVE WITH SBP 140'S-160'S, HELD EVENING PO MEDS, REPORT FROM DAYSHIFT THAT PT O2 DECREASED AFTER GIVEN SIPS OF WATER WITH MEDICATIONS. DISCUSSED WITH HAZEL HUBER NUT SORTER OPERATOR FOR PRN IV BP MEDICATIONS, SEE NEW ORDER. BT HYPOACTIVE, ATTENDS IN PLACE, MATHIS IN PLACE DRAINING CLEAR YELLOW URINE. PT HAS VERY WEAK AND MINIMAL MOVEMENT TO HIS R SIDE AND ABSENT ON L SIDE, HX CVA. PT DENIES PAIN OR SOB AT THIS TIME.
[2019-08-26 04:12] LABS: BASOPHILS ABSOLUTE AUTO 0.03 K/mm3 (0.00-0.23); BASOPHILS PERCENT AUTO 0 % (0-2); EOSINOPHILS PERCENT AUTO 0 % (0-6); Hematocrit 43.3 % (37.0-53.0); Hemoglobin 13.7 g/dL (13.5-17.5); IMMATURE GRAN ABSOLUTE AUTO 0.12 K/mm3 (0.00-0.10); IMMATURE GRAN PERCENT AUTO 1 % (0-1); LYMPHOCYTES ABSOLUTE AUTO 0.94 K/mm3 (0.84-5.20); LYMPHOCYTES PERCENT AUTO 5 % (21-46); MONOCYTES ABSOLUTE AUTO 0.47 K/mm3 (0.16-1.47); MONOCYTES PERCENT AUTO 2 % (4-13); Mean Corpuscular HGB 24.3 pg (26.0-34.0); Mean Corpuscular HGB Conc 31.6 g/dL (31.5-36.5); Mean Corpuscular Volume 77 fL (80-100); Mean Platelet Volume 10.4 fL (9.1-12.4); NEUTROPHILS ABSOLUTE AUTO 18.85 K/mm3 (1.96-9.15); NEUTROPHILS PERCENT AUTO 92 % (41-73); Platelet Count 247 K/mm3 (150-400); RDW Coefficient Variation 18.4 % (11.7-14.2); RDW Standard Deviation 49.1 fL (35.1-46.3); Red Blood Cell Count 5.63 M/mm3 (4.30-5.90); White Blood Cell Count 20.41 K/mm3 (4.00-11.30)
[2019-08-26 04:14] LABS: Base Excess Venous 2.5 mmol/L; Bicarbonate Venous 26.2 mmol/L (24.0-30.0); PCO2 Venous 42.6 mmHg (38-42); PO2 Venous 82.3 mmHg (38-42); pH Blood Venous 7.41 (7.34-7.37)
[2019-08-26 04:31] LABS: Anion Gap 13 mmol/L (6-16); Blood Urea Nitrogen 20 mg/dL (8-24); Bun/Creatinine Ratio 43.1 (12.0-20.0); CO2, Blood 23 mmol/L (21-32); Calcium, Blood 9.4 mg/dL (8.5-10.1); Chloride, Blood 98 mmol/L (98-108); Creatinine, Blood 0.46 mg/dL (0.60-1.20); Glomerular Filtration Rate >60 (60-); Glucose, Blood 148 mg/dL (70-99); Potassium, Blood 3.6 mmol/L (3.5-5.5); Sodium, Blood 134 mmol/L (136-145); Vancomycin, Trough 15.3 ug/mL (5.0-10.0)
--- NOTE | 2019-08-26 06:21 | NUR ---
SHIFT SUMMARY PT REMAINS ON BIPAP T/O SHIFT, FIO2 TITRATED TO 50%, RR INCREASING THROUGH SHIFT WITH LONGER SUSTAINED PERIODS OF RR 40-45 AND THEN DECREASING TO 30'S, PRECEDEX TITRATED FOR COMFORT. PT MORE DIFFICULT TO AROUSE TOWARDS END OF SHIFT, REMAINS ORIENTED TO SELF, RESPONDS TO PAINFUL STIMULI AND APPRECIATIVE OF ORAL CARE, NOT ANSWERING QUESTIONS OR FOLLOWING DIRECTIONS. PT REMAINS IN AFIB WITH HR 100-130'S, HYPERTENSIVE, PRN LABETALOL ADMINISTERED x2 THIS SHIFT. NPO MEDICATIONS HELD T/O SHIFT. MATHIS REMAINS IN PLACE, DRAINING DARK YELLOW URINE.
--- NOTE | 2019-08-26 08:02 | NUR ---
PT TACHYPNEIC AND UTILIZING ACCESSORY MUSCLES TO BREATH. HE MOANS TO PAINFUL STIMULI, OTHERWISE OBTUNDED. LUNGS DIMINISHED THROUGH OUT THE RIGHT LUNG BRODY AND TIGHT AND COARSE TO LEFT. SAT>90% ON BIPAP 12/8 WITH FIO2 50%. HOWEVER, PT IS WORKING VERY HARD TO BREATH. ECG SHOWS AFIB WITH RATE 120-130'S. SBP TRENDING 160'S. MED WITH LABETOLOL 10 MG IVP X1. PT NPO. GENERALIZED EDEMA NOTED. UPPER AND LOWER EXTREMITIES ELEVATED ON PILLOWS. MATHIS WITH 300 CC DARK, ORANGE, CLOUDY URINE TO UROMETER.
--- NOTE | 2019-08-26 08:12 | NUR ---
RR 40'S PT CONTINUES TO LABOR WITH BREATHING-WILL NOTIFY MAINSPRING WINDER AND OILER.
--- NOTE | 2019-08-26 08:16 | NUR ---
DR. LOMBARDI UPDATED TO PT INCREASING RESPIRATORY DISTRESS.
--- NOTE | 2019-08-26 10:00 | NUR ---
PT CONTINUES TO LABOR TO BREATH. RR 40'S. SBP TRENDING 70'S. DR. LOMBARDI MADE AWARE OF CURRENT VS AND STATUS. NS 500 CC BOLUS INITIATED. PREP FOR RSI.
--- NOTE | 2019-08-26 10:04 | NUR ---
LEVOPHED DRIP INITIATED @ 10 MCG/MIN.
--- NOTE | 2019-08-26 10:11 | NUR ---
ETOMIDATE 20 MG IVP X 1 GIVEN FOR RSI. LEVOPHED TITRATED UP TO 20MCG/MIN. PT INTUBATED WITH 8.0 ETT/TAPED 26 @ OUTER LIP. OGT PLACED AND CLAMPED. PCXR ORDERED.
--- NOTE | 2019-08-26 10:20 | NUR ---
VASOPRESSIN DRIP STARTED @0.04 UNITS/MIN. PORTABLE CHEST XRAY DONE AND DR. LOMBARDI CONFIRMED ETT AND OGT PLACEMENT. VENT: AC 16, RR 24, FIO2 100%, PEEP 5-SATS>90% HR 120'S CONTINUE AFIB. SBP TRENDING 90-100'S WITH LEVOPHED DRIP @ 15 MCG/MIN AND VASOPRESSIN @ 0.04 UNITS/MIN.
--- NOTE | 2019-08-26 11:45 | NUR ---
ABG DRAWN. PT REPOSITIONED CLARKE'S POSITION. HR AND RESP RATE INCREASED WITH POSITION CHANGE AND PT GRIMACING. MED WITH FENTANYL 50 MCG IVP X 1.
[2019-08-26 12:00] LABS: PCO2 Arterial 37.8 mmHg (35-45); PO2 Arterial 122 mmHg (80-100); pH Blood Arterial 7.42 (7.35-7.45)
--- NOTE | 2019-08-26 12:39 | NUR ---
ABG RESULTS REVIEWED-FIO2 TITRATED DOWN TO 50% PT MAINTAINS SATS>90%
--- NOTE | 2019-08-26 12:49 | NUR ---
PT TURNED TO RIGHT SIDE UTILIZING CEILING LIFT. PT COUGHING, GRIMACING, AND HR 140'S AFIB. MED WITH ATIVAN 1 MG IVP X 1.
--- NOTE | 2019-08-26 13:11 | NUR ---
TEMP 100.2 HR CONTINUES 130'S-150'S.
--- NOTE | 2019-08-26 13:30 | NUR ---
TEM[ 100.2 DR. LOMBARDI AWARE-MED WITH TYLENOL 650 MG PER OGT-SEE EMAR.
--- NOTE | 2019-08-26 13:42 | NUR ---
AMIODARONE BOLUS INITIATED-HR 140-160'S.
--- NOTE | 2019-08-26 13:54 | NUR ---
AMIODARONE DRIP INITIATED AT 1 MG/MIN=33 CC/HR. HR 120'S AFTER AMIODARONE BOLUS.
--- NOTE | 2019-08-26 14:10 | NUR ---
SBP STILL IN THE 70s-80s. DR. LOMBARDI AT BEDSIDE. LR 1000 BOLUS WAS STARTED ORDERED. PT IS CURRENTLY ON LEVOPHED AT 30MCG/KG/MIN, PROPOFOL @ 35MCG/KG/MIN, VASOPRESSIN @ 0.04UNITS/HR.
--- NOTE | 2019-08-26 14:40 | NUR ---
SBP 70'S WITH LEVOPHED @ 30 MCG/MIN AND VASOPRESSIN @ 0.04 UNITS/MIN. NS 1000 CC BOLUS GIVEN. NEOSYNEPHRINE DRIP INITIATED. FIO2 55% PER DR. LOMBARDI.
[2019-08-26 15:20] LABS: Hematocrit 37.3 % (37.0-53.0); Hemoglobin 11.6 g/dL (13.5-17.5)
--- NOTE | 2019-08-26 17:45 | NUR ---
PT RESTING QUIETLY ON VENT WITH PROPOFOL @ 35 MCG/KG/MIN AND FENTANYL FOR PAIN/SEDATION ADJUNCT. SOFT WRIST RESTRAINTS REMAIN IN PLACE TO PREVENT ACCIDENTAL EXTUBATION. ECG CONTINUES AFIB WITH AMIODARONE DRIP @ 1MG/MIN. TITRATING LEVOPHED AND PHENYLEPHRINE TO KEEP MAP>60-CURRENTLY, LEVOPHED @ 25 MCG/MIN, PHENYLEPHRINE @ 200MCG/KG/MIN-VASOPRESSIN CONTINUES @ 0.04 UNITS/MIN. LUNGS REMAIN DIMINISHED, BUT PT MAINTAINING SATS>90% ON FIO2 50% EXTREMITIES HAND AND LOWER EXTREMITIES MOTTLED-SPO2 VIA NOSE PROBE. OGTF VITAL PROTEIN @ 15 CC/HR WITH 30 CC FLUSH EVERY [address] TROPONIN #[address] LOMBARDI UPDATED PT SPOUSE REGARDING CURRENT STATUS AND PLAN OF CARE.
--- NOTE | 2019-08-26 17:50 | NUR ---
Echocardiogram using 0.60ml of Definity contrast performed.
--- NOTE | 2019-08-26 20:05 | NUR ---
INITAL ASSESSMENT PT IS INTUBATED AND SEDATED AT THIS TIME. PROPOFOL GTT RUNNING AT 30MCG. SEE FLOW CHART FOR ALL ADJUSTMENTS TO GTTS. VITALS ARE STABLE AT THIS TIME. WILL KEEP MAP OVER 60 ORDERED. PT DOES HAVE A LOW GRADE TEMP. PT HAS FURROWED BROWS WITH PALPITATION TO ABD, ADJUSTING ARMS AND TURNING. SEE RT NOTES FOR VENT SETTINGS AND CHANGES T/O SHIFT. OG TUBE IN PLACE WITH TUBE FEEDING RUNNING ORDERED AND FLUSHES. WILL CON'T TO CHECK RESIDUALS T/O SHIFT. PT HAS IV LINE TO RIGHT ARM. PATENT AND SL. PT HAS CENTRAL LINE TO RIGHT GROIN THAT IS PATENT AND DRESSING CDI WITH NO S/S OF INFECTION. LEVOPHED GTT, VASOPRESSIN GTT, NEOSYNEPHRINE GTT AND NORMAL SALINE RUNNING ORDERED. PT HAS MATHIS CATH IN PLACE AND DRAINING DARK YELLOW URINE. PT HAS SUSAN WRIST RESTRAINTS IN PLACE WITH NO SKIN ISSUES. ARMS ARE ELEVATED ON PILLOWS. EDEMA TO ALL EXTREMITIES. SKIN IS OVERALL VERY DRY BUT INTACT. WILL CON'T TO TURN PT TO PREVENT FURTHER SKIN BREAK DOWN. WILL CON'T TO MONITOR PT AND KEEP SAFE T/O SHIFT.
--- NOTE | 2019-08-26 22:55 | NUR ---
UPDATE PT CON'T TO HAVE LOW BLOOD PRESSURE. DR LOMBARDI ORDERED SOLUCORTEF IV WHICH WAS GIVEN. SEVERAL DIFFERENT SITES FOR BP HAVE BEEN TRIED WITH BP CUFF. CONSISTENTLY LOW. ORAL CARE DONE WITH PT AGAIN AND NOTED BEFORE WAS SOME DARK THIN BLOOD ABOVE THE CUFF. UPON THIS ORAL CARE THERE IS DARK BLOOD WITH DIME SIZE CLOTTS NOTED. DR LOMBARDI ORDERED TO HAVE A STAT H AND H DRAWN THIS WAS DONE. ALSO ORDERED TO HAVE A 500CC NS BOLUS IV GIVEN. THIS IS CURRENTLY RUNNING. NO NEURO CHANGES AT THIS TIME.
[2019-08-26 22:59] LABS: Hematocrit 37.4 % (37.0-53.0); Hemoglobin 11.5 g/dL (13.5-17.5)
--- NOTE | 2019-08-27 01:48 | NUR ---
UPDATE CODE STATUS PT'S IN TO SEE PT AT THIS TIME. EDUCATED TO PT'S CONDITION AND MEDICATIONS BEING GIVEN. DISCUSSED WITH PT'S THE FULL CODE STATUS. PT'S WOULD LIKE TO CHANGE PT TO A NO CODE STATUS AT THIS TIME. SHE WANTS TO CON'T WITH THE IV MEDICATIONS, BUT NO CPR INTERVENTION AT THIS TIME. BUSINESS SYSTEM MANAGER NOTIFIED AND CODE STATUS CHANGED.
[2019-08-27 02:42] LABS: Albumin, Blood 1.6 g/dL (3.4-5.0); Albumin/Globulin Ratio 0.3 (0.8-1.8); Bilirubin, Total 2.3 mg/dL (0.1-1.0); Bun/Creatinine Ratio 27.5 (12.0-20.0); Calcium, Blood 7.6 mg/dL (8.5-10.1); Creatinine, Blood 1.42 mg/dL (0.60-1.20); Globulin, Blood 4.7 g/dL (2.2-4.0); Magnesium, Blood 1.4 mg/dL (1.6-2.4); Phosphorus, Blood 2.6 mg/dL (2.5-4.9); Potassium, Blood 4.2 mmol/L (3.5-5.5); Total Protein, Blood 6.3 g/dL (6.4-8.2)
[2019-08-27 02:45] LABS: Troponin I 17.6 ng/mL (0.000-0.040)
[2019-08-27 02:48] LABS: BASOPHILS ABSOLUTE AUTO 0.05 K/mm3 (0.00-0.23); BASOPHILS PERCENT AUTO 0 % (0-2); EOSINOPHILS ABSOLUTE AUTO 0.02 K/mm3 (0.00-0.68); EOSINOPHILS PERCENT AUTO 0 % (0-6); Hematocrit 36.2 % (37.0-53.0); Hemoglobin 11.1 g/dL (13.5-17.5); IMMATURE GRAN ABSOLUTE AUTO 1.22 K/mm3 (0.00-0.10); IMMATURE GRAN PERCENT AUTO 8 % (0-1); LYMPHOCYTES ABSOLUTE AUTO 3.22 K/mm3 (0.84-5.20); LYMPHOCYTES PERCENT AUTO 22 % (21-46); MONOCYTES ABSOLUTE AUTO 1.06 K/mm3 (0.16-1.47); MONOCYTES PERCENT AUTO 7 % (4-13); Mean Corpuscular HGB 24.3 pg (26.0-34.0); Mean Corpuscular HGB Conc 30.7 g/dL (31.5-36.5); Mean Corpuscular Volume 79 fL (80-100); NEUTROPHILS PERCENT AUTO 62 % (41-73); NRBC ABSOLUTE 0.53 K/mm3 (0.00-0.02); NRBC Auto 3.6 /100 WBC (0.0-0.2); RDW Coefficient Variation 20.7 % (11.7-14.2); RDW Standard Deviation 57.9 fL (35.1-46.3); Red Blood Cell Count 4.57 M/mm3 (4.30-5.90); White Blood Cell Count 14.77 K/mm3 (4.00-11.30)
[2019-08-27 02:53] LABS: Platelet Count 19 K/mm3 (150-400)
[2019-08-27 03:03] LABS: BAND PERCENT MAN 4 % (0-8); BASOPHILS PERCENT MAN 0 % (0-2); EOSINOPHILS PERCENT MAN 0 % (0-6); LYMPHOCYTES ABSOLUTE MAN 2.51 K/mm3 (0.84-5.20); LYMPHOCYTES PERCENT MAN 17 % (21-46); METAMYELOCYTE ABSOLUTE MAN 0.88 K/mm3 (0.00-0.00); METAMYELOCYTE PERCENT MAN 6 % (0-0); MONOCYTES ABSOLUTE MAN 0.59 K/mm3 (0.16-1.47); MONOCYTES PERCENT MAN 4 % (4-13); MYELOCYTE ABSOLUTE MAN 0.14 K/mm3 (0.00-0.00); MYELOCYTE PERCENT MAN 1 % (0-0); NEUTROPHILS ABSOLUTE MAN 10.48 K/mm3 (1.96-9.15); PROMYELOCYTE ABSOLUTE MAN 0.14 K/mm3 (0.00-0.00); PROMYELOCYTE PERCENT MAN 1 % (0-0); SEG NEUTROPHILS PERCENT MAN 67 % (41-73); TOTAL CELLS COUNTED 100
[2019-08-27 04:33] LABS: Vancomycin, Trough 31.1 ug/mL (5.0-10.0)
--- NOTE | 2019-08-27 05:33 | NUR ---
SHIFT SUMMARY PT CON'T TO BE STABLE WITH HIS CURRENT GTTS. SEE ICU FLOW SHEETS FOR GTT RATE CHANGES. VENT FIO2 HAS BEEN INCREASED DURING SHIFT TO KEEP OXYGEN SATS WNL. SEE RT NOTES REGARDING VENT SETTING CHANGES. PT CON'T TO HAVE BRIGHT BLOODY RETURN WITH ORAL SUCTIONING. IN LINE SUCTION HAS MINIMAL TO NO RETURN. OG TUBE CON'T TO BE IN PLACE. THE TUBE FEEDINGS HOWEVER WERE TURNED OFF PER FEED ELEVATOR WORKER'S INSTRUCTIONS. HIGH RESIDUALS HAVE BEEN NOTED T/O SHIFT. MATHIS CATH CON'T TO BE IN PLACE. ONLY 40ML OF URINE IN MATHIS CATH THIS SHIFT. PT HAS NOT HAD ANY STOOLS THIS SHIFT. CHEST X-RAY WAS ORDERED, BUT HELD OFF AT THIS TIME R/T PT BEING FRAGILE AND DNR. CON'T TO BE AT BEDSIDE. SHE HAS BEEN RESTING WITH HER EYES CLOSED NEXT TO PT'S BEDSIDE. WILL CON'T TO MONITOR PT TILL REPORT TO ONCOMING RN.
--- NOTE | 2019-08-27 09:31 | NUR ---
CARE ASSUMED ASSESSMENT COMPLETED. PT UNRESPONSIVE TO PAINFUL STIMULI, IS RIDING VENT, PUPILS SLUGGISH, DILATED. PROPOFOL 30. VENT SETTINGS AC 16, Vt 500, FIO2 65%, PEEP 5. FIO2 INCREASED TO 70% FOR SPO2 89%, SPO2 NOW 91%. HR IRREG, RATE 80-90'S AFIB, BP HYPOTENSIVE DESPITE VASO 0.04, LEVO 35, KANDIS 300, EPI 2. CENTRAL PULSES WEAK, UNABLE TO LOCATE PERIPHERAL PULSES WITH DOPPLER. LE'S MOTTLED, BILAT FINGERS COLD, PURPLE IN COLOR, LEFT FINGERS DARKER THAN RIGHT. BLOOD OOZING FROM PATIENTS MOUTH CONTINUOUSLY, CLOTS SUCTIONED FROM THROAT DURING ORAL CARE. NO BLOOD FROM ETT, SCANT SECRETIONS FROM ETT SUCTIONING, THIN WHITE. PT EDEMATOUS T/O, SCANT URINE OUTPUT. NO BLEEDING NOTED FROM RECTUM, IV, OR CL SITES. AT BEDSIDE, DR PERAZA IN TO ASSESS.
--- NOTE | 2019-08-27 10:55 | NUR ---
UPDATE DR. LOMBARDI IN TO SEE PATIENT. SEDATION VACATION INITIATED, PT CONTINUES TO HAVE NO RESPONSE TO PAINFUL STIMULI WHEN OFF OF PROPOFOL, WILL CONTINUE TO MONITOR. RR 17-20, NO OTHER CHANGES NOTED WITH SEDATION VACATION.
--- NOTE | 2019-08-27 12:28 | NUR ---
UPDATE SEDATION REMAINS OFF, PT UNRESPONSIVE TO PAINFUL STIMULUS. HR HAS DECREASED FROM 80'S DOWN TO 60'S, PT MOTTLED IN ALL LIMBS AND TORSO. PUPILS DILATED, UNEQUAL. BLOOD CONTINUES TO OOZE FROM MOUTH, IS NOW OOZING FROM IV AND CL SITES. DR. SIMONS AND AT BEDSIDE TO ASSESS. PT'S NOTIFIED OF PT'S CONDITION AND CHANGES, TO NOTIFY FAMILY. SON AT BEDSIDE AT THIS TIME.
--- NOTE | 2019-08-27 13:29 | NUR ---
Pt resting in bed and is intubated. No S/S of distress at this time. Pt's son at bedside. Offered therapeutic listening and support. Answered questions. Son seems at peace with plan to terminally withdrawal. Son expresses appreciation of visit. Spoke with Bedside RN Jenni prior to visit and discussed case. Pt is showing significant signs of decline. Pt is not sedated, intubated, and has no neuro response to pain full stimuli with pupils dilated and not equal. Palliative Care will remain available for therapeutic and supportive visits.
--- NOTE | 2019-08-27 15:04 | NUR ---
UPDATE PT'S 2 SONS AND AT BEDSIDE, HAVE DISCUSSED CARE OPTIONS AND INFORMED THIS RN THAT THEY ARE READY FOR EXTUBATION TO COMFORT CARE. DR. LOMBARDI NOTIFIED, WISHES CLARIFIED WITH FAMILY, COMFORT ORDERS RECEIVED. PT EXTUBATED, IV DRIPS AND FLUIDS DC'D, O2 PLACED PER NC. PT DID NOT TAKE A BREATH AFTER EXTUBATION, FAMILY REMAINS AT BEDSIDE T/O PROCEDURE AND UNTIL ASYSTOLE AT 1511.
--- NOTE | 2019-08-27 15:23 | NUR ---
Supportive Visit for Terminal Withrawal of Life Support. Bedside GRAZYNA Arteaga, Chaplain Palacios, and this RN present for support of family. Pt has a peaceful passing. Offered emotional support and codolences to family. Family appear to be grieving appropriately. Family reports to Bedside GRAZYNA Camara of home chosen. Palliative Care will remain available.
--- NOTE | 2019-08-27 16:10 | NUR ---
FINAL DC NOTE FAMILY SPOKE WITH PALLIATIVE CARE AND ROLLER PICKER, THEN LEFT FACILITY AFTER PT'S . DEL AND RAFAEL REMOVED WNL, POST MORTEM CARE PROVIDED. PT TO [facility] AT 1555, PT'S BELONGINGS LEFT AT [facility].
--- NOTE | 2019-08-27 17:25 | NUR ---
Initial spiritual care note: Met with pt's 2 sons before extubation. Facilitated life review and gentle group counselor. They explained pt's QOL has not been acceptable to him "for a long time" and that pt had expressed being ready to "go." Pt' , Rica, arrived. She wanted me to pray once life-support was withdrawn. Family was tearful and appropriate. Mr. Causey passed peacefully thanks to excellent nursin care and attention. Family expressed gratitude for care.
== END 2019-08-27 15:11 | DRG 871 ==
LOC: ER 13:46 → ICUE 16:48 → ICUW 16:48 → ICUE 17:16
PROVIDERS: Emergency Medicine; Internal Medicine Critical Care Medicine; Internal Medicine Pulmonary Disease; Pharmacist; ADMIT Internal Medicine
PROC: 06HY33Z Insertion of Infusion Device into Lower Vein, Percutaneous Approach (ICD-10-PCS; 2019-08-24)
PROC: 3E053XZ Introduction of Vasopressor into Peripheral Artery, Percutaneous Approach (ICD-10-PCS; 2019-08-24)
PROC: 8E0ZXY6 Isolation (ICD-10-PCS; 2019-08-24)
PROC: 0BH17EZ Insertion of Endotracheal Airway into Trachea, Via Natural or Artificial Opening (ICD-10-PCS; principal; 2019-08-26)
PROC: 5A1935Z Respiratory Ventilation, Less than 24 Consecutive Hours (ICD-10-PCS; 2019-08-26)
DX: A41.50 Gram-negative sepsis, unspecified (principal); J96.21 Acute and chronic respiratory failure with hypoxia; R65.21 Severe sepsis with septic shock; J18.9 Pneumonia, unspecified organism; J96.22 Acute and chronic respiratory failure with hypercapnia; N17.9 Acute kidney failure, unspecified; E87.1 Hypo-osmolality and hyponatremia; I48.11 Longstanding persistent atrial fibrillation; J44.0 Chronic obstructive pulmonary disease with (acute) lower respiratory infection; I69.354 Hemiplegia and hemiparesis following cerebral infarction affecting left non-dominant side; N39.0 Urinary tract infection, site not specified; F32.9 Major depressive disorder, single episode, unspecified; D69.6 Thrombocytopenia, unspecified; Z79.01 Long term (current) use of anticoagulants; I50.810 Right heart failure, unspecified; Z74.01 Bed confinement status; F41.9 Anxiety disorder, unspecified; G89.29 Other chronic pain; Z96.641 Presence of right artificial hip joint; Z87.891 Personal history of nicotine dependence; Z66 Do not resuscitate
CPT/HCPCS: 0099U; 31500; 31720; 36415; 36556; 36600; 51702; 71045; 80048; 80053; 80162; 80202; 81001; 82803; 82947; 83605; 83735; 83880; 84100; 84145; 84484; 85014; 85018; 85025; 85610; 85730; 87040; 87077; 87086; 87186; 93005; 93010; 94002; 94003; 94640; 94660; 94667; 96365-59; 96366-59; 96375-59; 99285-25; A9270; A9270-GY; C1751; C8929; C9113; J0171; J0282; J0696; J1720; J1956; J2060; J2370; J2543; J2704; J3010; J3370; J3475; J3480; J7030; J7040; J7050; J7060; J7120; Q9957; U0002